=== PATIENT | female | born 1990 | race Hispanic/Latino ===

== ENCOUNTER 2019-02-13 07:14 | Emergency (ER) | payer OTHER, SELFPAY ==
[2019-02-13] MEDS ORDERED: KETOROLAC TROMETHAMINE 15MG/ML ONE (07:44)
[2019-02-13] MEDS ORDERED: SODIUM CHLORIDE 0.9% 1000ML 1,000 ML IV ONE (07:44)
[2019-02-13 07:46] LABS: BASOPHILS % (AUTO) 0.3 % (0.0-5.0); EOSINOPHILS % (AUTO) 2.8 % (0.0-8.0); HEMATOCRIT 40.6 % (36-48); LYMPHOCYTES % (AUTO) 18.2 % (21.0-51.0); MEAN CORPUSCULAR HEMOGLOBIN 31.8 pg (27.0-33.0); MEAN CORPUSCULAR HGB CONC 34.9 g/dL (32.0-36.0); MEAN CORPUSCULAR VOLUME 91.1 fL (79-99); MONOCYTES % (AUTO) 9.5 % (3.0-13.0); NEUTROPHILS % (AUTO) 69.2 % (40.0-77.0); PLATELET COUNT (AUTO) 268 K/uL (130-400); RED BLOOD CELL COUNT(AUTO) 4.46 MIL/uL (4.00-5.50); RED CELL DISTRIBUTION WIDTH 12.2 % (11.0-15.5); WHITE BLOOD COUNT (AUTO) 11.5 K/uL (4.8-10.8)
[2019-02-13 07:54] LABS: CREATININE 0.8 mg/dL (0.5-1.5); POTASSIUM 3.8 mmol/L (3.5-5.1)
[2019-02-13 07:54] LABS: APPEARANCE,URINE CLOUDY (CLEAR); BILIRUBIN,URINE NEGATIVE (NEGATIVE); COLOR,URINE YELLOW (YELLOW); GLUCOSE, URINE (UA) NEGATIVE (NEGATIVE); KETONES,URINE NEGATIVE (NEGATIVE); LEUKOCYTE ESTERASE ,URINE LARGE (NEGATIVE); NITRATE,URINE POSITIVE (NEGATIVE); OCCULT BLOOD,URINE MODERATE (NEGATIVE); PROTEIN,URINE 30 mg/dL (NEGATIVE)
[2019-02-13 07:59] LABS: HCG,QUAL RESULT NEGATIVE (NEGATIVE)
[2019-02-13 07:59] LABS: ALBUMIN 3.7 g/dL (3.5-5.0); BILIRUBIN,TOTAL 0.4 mg/dL (0.2-1.0); TOTAL PROTEIN, SERUM 7.4 g/dL (6.0-8.3)
[2019-02-13 08:03] LABS: RBC,URINE 0-1 /HPF (0-1)
[2019-02-13 08:04] LABS: BACTERIA,URINE Rare /HPF (None Seen); SQUAMOUS EPITHELIAL CELL,UR Rare /HPF (0-2); WBC,URINE TNTC /HPF (0-1)
[2019-02-13] MEDS ORDERED: IOHEXOL-350 75 ML VIAL IV ONE (08:13)
[2019-02-13] MEDS ORDERED: CEFTRIAXONE SODIUM 1 GM ONE (09:36)
== END 2019-02-13 10:10 | disposition home or self-care (01) ==
LOC: EDH 07:14
DX: N39.0 Urinary tract infection, site not specified (principal)
CPT/HCPCS: 36415; 74177; 80053; 81001; 81025; 83690; 85025; 96374; 96375; 99285; J0696; J1885; J7030; Q9967

== ENCOUNTER 2021-03-21 10:41 | Emergency (ER) | payer OTHER ==
[~2021-03-21] VITALS: Ht 165.1 cm; Wt 90.3 kg
[2021-03-21 10:44] VITALS: BP 115/82
[2021-03-21] MEDS ORDERED: KETOROLAC 60 MG VIAL (30MG/ML) IM ONE (14:30)
[2021-03-21] MEDS ORDERED: HYDROCODONE/ACETAMINOPHEN 5/325 MG TAB PO ONE (14:30)
[2021-03-21 14:54] LABS: APPEARANCE,URINE Cloudy (CLEAR); BILIRUBIN,URINE Negative (NEGATIVE); COLOR,URINE Yellow (YELLOW); GLUCOSE, URINE (UA) Negative (NEGATIVE); KETONES,URINE Negative (NEGATIVE); LEUKOCYTE ESTERASE ,URINE Trace (NEGATIVE); NITRATE,URINE Negative (NEGATIVE); OCCULT BLOOD,URINE Negative (NEGATIVE); PH,URINE 5.5 (5.0-8.0); PROTEIN,URINE Negative (NEGATIVE)
[2021-03-21 15:03] VITALS: BP 111/69
[2021-03-21 15:09] LABS: HCG,QUAL RESULT NEGATIVE (NEGATIVE)
[2021-03-21 15:31] LABS: RBC,URINE 0-1 /HPF (0-1)
[2021-03-21 15:32] LABS: BACTERIA,URINE Few /HPF (None Seen); SQUAMOUS EPITHELIAL CELL,UR Moderate /HPF (0-2)
[2021-03-21 15:33] LABS: MUCUS,URINE Rare LPF (None Seen)
[2021-03-21 16:04] VITALS: BP 109/72
[2021-03-21] MEDS ORDERED: CYCL5TAB PO (16:25)
[2021-03-21] MEDS ORDERED: IBUP-2070 PO (16:25)
[2021-03-21] MEDS ORDERED: METH4TAB3 PO (16:25)
[2021-03-21] MEDS ORDERED: ACET1TAB25 PO (16:25)
== END 2021-03-21 17:11 | disposition home or self-care (01) ==
LOC: EDH 10:41
DX: M54.5 Low back pain (principal); G89.29 Other chronic pain; Z79.52 Long term (current) use of systemic steroids; Z79.1 Long term (current) use of non-steroidal anti-inflammatories (NSAID)
CPT/HCPCS: 72131; 81001; 81025; 96372; 99284; J1885